=== PATIENT | female | born 1960 | race Two or more races ===

== ENCOUNTER 2024-09-13 23:15 | Emergency (ER) | payer MEDICARE, BC, OTHER ==
[~2024-09-13] VITALS: Ht 160 cm; Wt 53.5 kg
[2024-09-14] MEDS ORDERED: DOXY-326 PO (01:53)
[2024-09-14] MEDS ORDERED: D-ME473S47 PO (01:53)
[2024-09-14] MEDS ORDERED: FLUT16SP16 BNOSTRILS (01:53)
[2024-09-14 02:10] VITALS: BP 114/68; TEMP 97.7; O2SAT 97
== END 2024-09-14 02:10 | disposition home or self-care (01) ==
LOC: ER 23:15
DX: J20.9 Acute bronchitis, unspecified (principal); J01.90 Acute sinusitis, unspecified; R05.9 Cough, unspecified
CPT/HCPCS: 71046; A4606; A4663